=== PATIENT | male | born 1935 | race Caucasian/White ===

== ENCOUNTER 2016-03-12 10:05 | Inpatient (IN) | payer OTHER ==
[~2016-03-12] VITALS: Ht 177.8 cm; Wt 86.9 kg
[~2016-03-12 10:05] MED LIST: AMLODIPINE BESYL5 MG; AMLODIPINE BESYL5 MG PO; AMMONIUM LACTA140 GM TP; ANTIVERT12.5 MG PO; APRESOLINE20 MG/ML IV; APRESOLINE25 MG PO; APRESOLINE50 MG PO; ASPIR 8181 M1 PO; ASPIRIN81 M2 PO; ATENOLOL50 MG; ATENOLOL50 MG PO; ATORVASTATIN 80 MG T; CALCITRIOL0.25 MCG PO; CALCIUM ACETAT667 MG PO; CENTRUM SILVER1 EAC3 PO; CRESTOR40 MG PO; DIAZEPAM5 MG PO; FUROSEMIDE20 MG PO; GEMFIBROZIL600 MG PO; GLIPIZIDE ER2.5 MG PO; HYDRALAZINE HCL25 MG PO; HYDROCHLOROTHIA50 MG PO; LASIX40 MG PO; LATANOPROST2.5 ML; LATANOPROST2.5 ML BOTH EYES; LIPITOR80 MG PO; LISINOPRIL40 MG PO; LO-DOSE ASPIRIN81 M1 PO; LONITEN2.5 MG PO; LOPRESSOR50 MG PO; LOSARTAN POTASS50 MG PO; LOW DOSE ASPIRI81 M2 PO; MECLIZINE HCL25 MG; MINOXIDIL2.5 MG PO; NABI650T PO; NORVASC5 MG PO; ROCALTROL0.25 MCG PO; SPIRONOLACTONE25 MG; TAMIFLU75 MG PO; TENORMIN50 MG PO; TIMOLOL MALEATE15 M1; TIMOLOL MALEATE15 M1 BOTH EYES; TIMOPTIC-0100 DROP/1 BOTH EYES; TRADJENTA5 MG PO; VALIUM5 MG PO; VELTASSA16.8 GM PO; VITAMIN D1000 UNIT PO; VITAMIN D22000 UNIT PO; XALATAN2.5 ML BOTH EYES
[2016-03-12 10:47] LABS: HEMATOCRIT 30.5 % (38.0-50.0); MCH 29.5 PG (29.0-34.0); MCHC 33.1 G/DL (30.0-36.0); MCV 89.2 FL (86-99); MEAN PLAT.VOLUME 10.8 uM^3 (9.0-12.4); PLATELET COUNT 203 K/uL (156-360); RBC DIS.WIDTH-CV 15.8 % (11.8-14.6); RBC DIS.WIDTH-SD 50.1 % (39-53); RED BLOOD COUNT 3.42 M/uL (4.00-5.50); WHITE BLOOD COUNT 6.1 K/uL (4.1-10.2)
[2016-03-12 11:47] LABS: ANION GAP 14 MEQ/L (2-14); CHLORIDE 108 MEQ/L (99-109); POTASSIUM 5.6 MEQ/L (3.7-5.4); SAMPLE HEMOLYSIS CHECK 0; SAMPLE ICTERIC CHECK 0; SAMPLE LIPEMIA CHECK 0; SODIUM 142 MEQ/L (136-147)
[2016-03-12 11:53] LABS: GFR ESTIMATE (CALCULATED) 9 mL/min/; GLUCOSE 101 mg/dL (70-99); UREA NITROGEN (BUN) 77 mg/dL (9-23)
[2016-03-12] MEDS ORDERED: APRESOLINE25 MG PO ×2 (12:19)
[2016-03-12] MEDS ORDERED: LASIX20 MG PO (12:22)
[2016-03-12] MEDS ORDERED: KIONEX15 GM/60 M PO (12:25)
[2016-03-12] MEDS ORDERED: VITRON-C TABLE1 EACH PO (12:26)
[2016-03-12] MEDS ORDERED: TUMS500 MG PO (12:27)
[2016-03-12 12:32] LABS: ADD MIUA? YES; BILIRUBIN NEGATIVE; BLOOD TRACE; COLOR YELLOW ((YELLOW)); GLUCOSE (STRIP) 100; KETONES TRACE; LEUKOCYTES NEGATIVE; NITRITE NEGATIVE; PH, URINE 6.5 (5-8); PROTEIN (STRIP) >=300; SPECIFIC GRAVITY 1.013 (1.000-1.030); UROBILINOGEN 0.2 MG/DL (0.2-1.0)
[2016-03-12 12:49] LABS: BACTERIA RARE; CASTS NONE SEEN /LPF; CRYSTALS NONE SEEN; EPITHELIAL CELLS NONE SEEN; MUCUS NONE SEEN; RED BLOOD CELLS RARE /HPF (0-5); UCUL ADDED? NO; WHITE BLOOD CELLS RARE /HPF (0-5)
[2016-03-12 13:46] LABS: TROP-I INTERPRETATION NEGATIVE; TROPONIN-I 0.01 ng/mL (0.0-0.30)
[2016-03-12 18:28] VITALS: BP 150/70
[2016-03-12 20:00] VITALS: BP 150/69
[2016-03-13] VITALS (7 sets, daily range): BP systolic 126–177; BP diastolic 60–94
[2016-03-13 07:01] LABS: HEMATOCRIT 28.2 % (38.0-50.0); MCH 29.8 PG (29.0-34.0); MCV 90.4 FL (86-99); MEAN PLAT.VOLUME 10.6 uM^3 (9.0-12.4); PLATELET COUNT 206 K/uL (156-360); RBC DIS.WIDTH-SD 52.6 % (39-53); RED BLOOD COUNT 3.12 M/uL (4.00-5.50); WHITE BLOOD COUNT 5.4 K/uL (4.1-10.2)
[2016-03-13 07:21] LABS: ANION GAP 16 MEQ/L (2-14); CHLORIDE 110 MEQ/L (99-109); GFR ESTIMATE (CALCULATED) 9 mL/min/; GLUCOSE 118 mg/dL (70-99); POTASSIUM 5.5 MEQ/L (3.7-5.4); SAMPLE HEMOLYSIS CHECK 0; SAMPLE ICTERIC CHECK 0; SAMPLE LIPEMIA CHECK 0; SODIUM 145 MEQ/L (136-147); UREA NITROGEN (BUN) 76 mg/dL (9-23)
[2016-03-13 09:27] LABS: INTERNAL CONTROL VALID? YES
[2016-03-14 04:00] VITALS: BP 140/68
[2016-03-14 05:01] LABS: CHLORIDE 111 mEq/L (99-109); POTASSIUM 4.8 mEq/L (3.7-5.4); SODIUM 140 mEq/L (136-147)
[2016-03-14 05:03] LABS: GLUCOSE 111 mg/dL (70-99)
[2016-03-14 05:04] LABS: ANION GAP 10 MEQ/L (2-14)
[2016-03-14 05:07] LABS: GFR ESTIMATE (CALCULATED) 9 mL/min/
[2016-03-14 05:08] LABS: UREA NITROGEN (BUN) 78 mg/dL (9-23)
[2016-03-14 06:39] LABS: HEMATOCRIT 28.4 % (38.0-50.0); MCH 29.5 PG (29.0-34.0); MCHC 33.1 G/DL (30.0-36.0); MEAN PLAT.VOLUME 9.7 uM^3 (9.0-12.4); PLATELET COUNT 212 K/uL (156-360); RBC DIS.WIDTH-CV 15.8 % (11.8-14.6); RBC DIS.WIDTH-SD 51.3 % (39-53); RED BLOOD COUNT 3.19 M/uL (4.00-5.50); WHITE BLOOD COUNT 6.1 K/uL (4.1-10.2)
[2016-03-14 07:13] LABS: ANION GAP 15 MEQ/L (2-14); CHLORIDE 107 MEQ/L (99-109); POTASSIUM 4.7 MEQ/L (3.7-5.4); SAMPLE HEMOLYSIS CHECK 0; SAMPLE ICTERIC CHECK 0; SAMPLE LIPEMIA CHECK 0; SODIUM 141 MEQ/L (136-147); TOTAL BILIRUBIN 0.7 MG/DL (0.0-1.0)
[2016-03-14 07:19] LABS: ALKALINE PHOSPHATASE 80 IU/L (3-129); GFR ESTIMATE (CALCULATED) 10 mL/min/; GLUCOSE 127 mg/dL (70-99); UREA NITROGEN (BUN) 69 mg/dL (9-23)
[2016-03-14 07:29] VITALS: BP 138/86
[2016-03-14 11:22] VITALS: BP 119/65
[2016-03-14 15:03] LABS: INFLUENZA A VIRAL ANTIGEN NEGATIVE; INFLUENZA B VIRAL ANTIGEN NEGATIVE
[2016-03-14 16:00] VITALS: BP 134/69
[2016-03-14 18:52] LABS: ADD MIUA? YES; BILIRUBIN NEGATIVE; BLOOD TRACE; COLOR YELLOW ((YELLOW)); GLUCOSE (STRIP) 250; KETONES NEGATIVE; LEUKOCYTES NEGATIVE; NITRITE NEGATIVE; PH, URINE 6.5 (5-8); PROTEIN (STRIP) 300; SPECIFIC GRAVITY 1.014 (1.000-1.030); UROBILINOGEN 0.2 MG/DL (0.2-1.0)
[2016-03-14 19:06] LABS: BACTERIA NONE SEEN; CASTS NONE SEEN /LPF; CRYSTALS NONE SEEN; EPITHELIAL CELLS NONE SEEN; MUCUS NONE SEEN; RED BLOOD CELLS 0-5 /HPF (0-5); UCUL ADDED? NO; WHITE BLOOD CELLS 0-5 /HPF (0-5)
[2016-03-14 20:00] VITALS: BP 113/72
[2016-03-15] VITALS: BP 127/65
[2016-03-15 03:44] VITALS: BP 118/68
[2016-03-15 05:27] LABS: ANION GAP 12 MEQ/L (2-14); CHLORIDE 109 MEQ/L (99-109); GFR ESTIMATE (CALCULATED) 9 mL/min/; GLUCOSE 105 mg/dL (70-99); POTASSIUM 4.7 MEQ/L (3.7-5.4); SAMPLE HEMOLYSIS CHECK 0; SAMPLE ICTERIC CHECK 0; SAMPLE LIPEMIA CHECK 0; SODIUM 142 MEQ/L (136-147); UREA NITROGEN (BUN) 69 mg/dL (9-23)
[2016-03-15 07:57] VITALS: BP 108/42
[2016-03-15 08:00] VITALS: BP 122/78
[2016-03-15 09:31] LABS: INTERNAL CONTROL VALID? YES
[2016-03-15 11:26] VITALS: BP 135/57
[2016-03-15 16:09] VITALS: BP 114/54
[2016-03-16] VITALS (7 sets, daily range): BP systolic 110–215; BP diastolic 58–81
[2016-03-16 04:58] LABS: CHLORIDE 110 mEq/L (99-109); POTASSIUM 4.4 mEq/L (3.7-5.4); SODIUM 142 mEq/L (136-147)
[2016-03-16 05:00] LABS: GLUCOSE 105 mg/dL (70-99)
[2016-03-16 05:02] LABS: ANION GAP 12 MEQ/L (2-14)
[2016-03-16 05:04] LABS: GFR ESTIMATE (CALCULATED) 9 mL/min/
[2016-03-16 05:05] LABS: UREA NITROGEN (BUN) 64 mg/dL (9-23)
[2016-03-17 04:00] VITALS: BP 125/58; BP 140/78
[2016-03-17 07:00] LABS: HEMATOCRIT 27.9 % (38.0-50.0); MCH 28.3 PG (29.0-34.0); MCHC 31.5 G/DL (30.0-36.0); MCV 89.7 FL (86-99); MEAN PLAT.VOLUME 9.8 uM^3 (9.0-12.4); PLATELET COUNT 211 K/uL (156-360); RBC DIS.WIDTH-CV 15.8 % (11.8-14.6); RBC DIS.WIDTH-SD 51.6 % (39-53); RED BLOOD COUNT 3.11 M/uL (4.00-5.50); WHITE BLOOD COUNT 5.1 K/uL (4.1-10.2)
[2016-03-17 07:35] LABS: ANION GAP 13 MEQ/L (2-14); CHLORIDE 108 MEQ/L (99-109); GFR ESTIMATE (CALCULATED) 9 mL/min/; GLUCOSE 101 mg/dL (70-99); POTASSIUM 4.6 MEQ/L (3.7-5.4); SAMPLE HEMOLYSIS CHECK 0; SAMPLE ICTERIC CHECK 0; SAMPLE LIPEMIA CHECK 0; SODIUM 144 MEQ/L (136-147); UREA NITROGEN (BUN) 61 mg/dL (9-23)
[2016-03-17 12:16] VITALS: BP 148/67
[2016-03-17 15:50] VITALS: BP 148/68
[2016-03-17 20:46] VITALS: BP 210/88
[2016-03-17 23:27] VITALS: BP 188/70
[2016-03-18 04:39] VITALS: BP 179/88
[2016-03-18 07:09] LABS: HEMATOCRIT 26.3 % (38.0-50.0); MCHC 32.3 G/DL (30.0-36.0); MCV 89.8 FL (86-99); MEAN PLAT.VOLUME 9.9 uM^3 (9.0-12.4); PLATELET COUNT 225 K/uL (156-360); RBC DIS.WIDTH-CV 15.5 % (11.8-14.6); RBC DIS.WIDTH-SD 48.7 % (39-53); RED BLOOD COUNT 2.93 M/uL (4.00-5.50)
[2016-03-18 07:39] LABS: ANION GAP 12 MEQ/L (2-14); CHLORIDE 107 MEQ/L (99-109); GFR ESTIMATE (CALCULATED) 9 mL/min/; GLUCOSE 87 mg/dL (70-99); POTASSIUM 4.5 MEQ/L (3.7-5.4); SAMPLE HEMOLYSIS CHECK 0; SAMPLE ICTERIC CHECK 0; SAMPLE LIPEMIA CHECK 0; SODIUM 142 MEQ/L (136-147); UREA NITROGEN (BUN) 60 mg/dL (9-23)
[2016-03-18 08:37] VITALS: BP 122/51
[2016-03-18 12:07] VITALS: BP 142/56
[2016-03-18 15:00] VITALS: BP 142/66
[2016-03-18 20:47] VITALS: BP 140/72
[2016-03-18 23:36] VITALS: BP 130/70
[2016-03-19 04:46] VITALS: BP 120/43
[2016-03-19 07:16] LABS: HEMATOCRIT 26.1 % (38.0-50.0); MCHC 32.6 G/DL (30.0-36.0); MCV 89.1 FL (86-99); PLATELET COUNT 201 K/uL (156-360); RBC DIS.WIDTH-CV 15.6 % (11.8-14.6); RBC DIS.WIDTH-SD 50.5 % (39-53); RED BLOOD COUNT 2.93 M/uL (4.00-5.50); WHITE BLOOD COUNT 4.7 K/uL (4.1-10.2)
[2016-03-19 07:38] LABS: ANION GAP 12 MEQ/L (2-14); CHLORIDE 106 MEQ/L (99-109); GFR ESTIMATE (CALCULATED) 9 mL/min/; GLUCOSE 104 mg/dL (70-99); POTASSIUM 4.1 MEQ/L (3.7-5.4); SAMPLE HEMOLYSIS CHECK 0; SAMPLE ICTERIC CHECK 0; SAMPLE LIPEMIA CHECK 0; SODIUM 142 MEQ/L (136-147); UREA NITROGEN (BUN) 57 mg/dL (9-23)
[2016-03-19 07:54] VITALS: BP 123/50
[2016-03-19 11:02] VITALS: BP 121/68
[2016-03-19 15:14] VITALS: BP 130/59
[2016-03-19 19:33] VITALS: BP 129/58
[2016-03-20] VITALS: BP 128/58
[2016-03-20 04:12] VITALS: BP 128/56
[2016-03-20 06:44] LABS: ANION GAP 12 MEQ/L (2-14); CHLORIDE 105 MEQ/L (99-109); GFR ESTIMATE (CALCULATED) 9 mL/min/; GLUCOSE 108 mg/dL (70-99); SAMPLE HEMOLYSIS CHECK 0; SAMPLE ICTERIC CHECK 0; SAMPLE LIPEMIA CHECK 0; SODIUM 142 MEQ/L (136-147); UREA NITROGEN (BUN) 54 mg/dL (9-23)
[2016-03-20 08:32] VITALS: BP 147/52
[2016-03-20] MEDS ORDERED: CLONIDINE HCL0.1 MG PO (09:05)
[2016-03-20] MEDS ORDERED: AMOX TR-K CLV1 EAC3 PO (09:05)
== END 2016-03-20 10:20 | DRG 193 ==
LOC: EME 10:05 → 5SOUTH 12:45 → EDOF 12:45 → 5SOUTH 17:43
PROVIDERS: Emergency Medicine; Hospitalist; Internal Medicine; Internal Medicine Nephrology; Physician Assistant; Physician Assistant Medical
DX: J18.9 Pneumonia, unspecified organism (principal); J96.01 Acute respiratory failure with hypoxia; G93.40 Encephalopathy, unspecified; I16.0 Hypertensive urgency; I12.0 Hypertensive chronic kidney disease with stage 5 chronic kidney disease or end stage renal disease; N18.5 Chronic kidney disease, stage 5; E87.2 Acidosis; N25.81 Secondary hyperparathyroidism of renal origin; E11.21 Type 2 diabetes mellitus with diabetic nephropathy; E11.22 Type 2 diabetes mellitus with diabetic chronic kidney disease; E11.40 Type 2 diabetes mellitus with diabetic neuropathy, unspecified; R45.6 Violent behavior; E87.5 Hyperkalemia; E55.9 Vitamin D deficiency, unspecified; D63.1 Anemia in chronic kidney disease; D50.9 Iron deficiency anemia, unspecified; F03.90 Unspecified dementia, unspecified severity, without behavioral disturbance, psychotic disturbance, mood disturbance, and anxiety; E78.5 Hyperlipidemia, unspecified; M19.90 Unspecified osteoarthritis, unspecified site; H81.09 Meniere's disease, unspecified ear; Z87.891 Personal history of nicotine dependence; Z85.828 Personal history of other malignant neoplasm of skin; Z86.73 Personal history of transient ischemic attack (TIA), and cerebral infarction without residual deficits
CPT/HCPCS: 70450; 71010; 71020; 80048; 80053; 80069; 81003; 82140; 82948; 83605; 84484; 85027; 87040; 87070; 87205; 87449; 87502; 93005; 93971; 94010; 94640; 94640 76; 94799; 97530 GP; 99202; 99281; 99285; J0456; J0696; J0881; J1644; J1756; J7050

== ENCOUNTER 2016-04-23 19:30 | Emergency (ER) | payer OTHER ==
[~2016-04-23] VITALS: Ht 177.8 cm; Wt 83.2 kg
[~2016-04-23 19:30] MED LIST changes: +AMOX TR-K CLV1 EAC3 PO; +CLONIDINE HCL0.1 MG PO; +KIONEX15 GM/60 M PO; +LASIX20 MG PO; +TUMS500 MG PO; +VITRON-C TABLE1 EACH PO
[2016-04-23 20:42] LABS: HEMATOCRIT 32.9 % (38.0-50.0); MCH 28.7 PG (29.0-34.0); MCHC 33.7 G/DL (30.0-36.0); MEAN PLAT.VOLUME 9.8 uM^3 (9.0-12.4); RBC DIS.WIDTH-CV 13.9 % (11.8-14.6)
[2016-04-23 20:50] LABS: PLATELET COUNT 201 K/uL (156-360); RED BLOOD COUNT 3.87 M/uL (4.00-5.50); WHITE BLOOD COUNT 5.8 K/uL (4.1-10.2)
[2016-04-23 20:57] LABS: CHLORIDE 98 mEq/L (99-109); POTASSIUM 4.6 mEq/L (3.7-5.4); SODIUM 137 mEq/L (136-147)
[2016-04-23 21:00] LABS: ADD MIUA? YES; BILIRUBIN NEGATIVE; BLOOD NEGATIVE; COLOR YELLOW ((YELLOW)); GLUCOSE (STRIP) >=500; KETONES NEGATIVE; LEUKOCYTES NEGATIVE; NITRITE NEGATIVE; PROTEIN (STRIP) >=500; SPECIFIC GRAVITY 1.006 (1.000-1.030); UROBILINOGEN 0.2 MG/DL (0.2-1.0)
[2016-04-23 21:00] LABS: GLUCOSE 257 mg/dL (70-99)
[2016-04-23 21:01] LABS: ANION GAP 13 MEQ/L (2-14); TOTAL BILIRUBIN 0.9 mg/dL (0.0-1.0)
[2016-04-23 21:03] LABS: ALKALINE PHOSPHATASE 100 IU/L (3-129); GFR ESTIMATE (CALCULATED) 8 mL/min/
[2016-04-23 21:04] LABS: UREA NITROGEN (BUN) 63 mg/dL (9-23)
[2016-04-23 21:07] LABS: BACTERIA RARE /HPF; EPITHELIAL CELLS NONE SEEN /HPF; MUCUS NONE SEEN /LPF; RED BLOOD CELLS 0-5 /HPF (0-5); UCUL ADDED? NO; WHITE BLOOD CELLS 0-5 /HPF (0-5)
[2016-04-23 23:51] VITALS: BP 175/81
== END 2016-04-24 00:26 | disposition home or self-care (01) ==
LOC: EME 19:30
PROC: 0T9B70Z Drainage of Bladder with Drainage Device, Via Natural or Artificial Opening (ICD-10-PCS; principal; 2016-04-23)
DX: R33.9 Retention of urine, unspecified (principal); K59.00 Constipation, unspecified; E11.9 Type 2 diabetes mellitus without complications; E78.5 Hyperlipidemia, unspecified; I10 Essential (primary) hypertension; Z79.82 Long term (current) use of aspirin
CPT/HCPCS: 74022; 80053; 81003; 85027; 87340; 99281; 99285

== ENCOUNTER 2016-04-24 12:42 | Emergency (ER) | payer OTHER ==
[~2016-04-24] VITALS: Ht 177.8 cm; Wt 90.9 kg
[2016-04-24 14:37] VITALS: BP 153/59
== END 2016-04-24 14:59 | disposition home or self-care (01) ==
LOC: EME 12:42
DX: T83.031A Leakage of indwelling urethral catheter, initial encounter (principal); R33.9 Retention of urine, unspecified
CPT/HCPCS: 99281; 99284

== ENCOUNTER 2016-10-29 08:14 | Day surgery (SDC) | payer OTHER ==
[~2016-10-29] VITALS: Ht 177.8 cm; Wt 76.0 kg
[~2016-10-29 08:14] MED LIST changes: +BUSPAR5 MG PO; +CLONIDINE HCL0.2 MG PO; +DIOVAN320 MG PO; +INCRUSE ELLI62.5 MCG IH; +RENAL CAPS SOFTG1 MG PO
[2016-10-29 10:38] LABS: METH RESISTANT S AUREUS PCR NEGATIVE (NEGATIVE)
[2016-10-29 10:40] LABS: PROBE CHECK PASS; SPECIMEN PROCESSING CONTROL PASS
== END 2016-10-29 10:43 | disposition home or self-care (01) ==
LOC: CATH 08:14
PROVIDERS: Surgery
PROC: 057Y3DZ Dilation of Upper Vein with Intraluminal Device, Percutaneous Approach (ICD-10-PCS; principal; 2016-10-29)
DX: T82.858A Stenosis of other vascular prosthetic devices, implants and grafts, initial encounter (principal); N18.6 End stage renal disease; Z99.2 Dependence on renal dialysis; Z79.82 Long term (current) use of aspirin
CPT/HCPCS: 87641; C1725; C1769; C1894; J1644; J2250; J3010

== ENCOUNTER 2017-10-06 07:39 | Day surgery (SDC) | payer OTHER ==
[~2017-10-06] VITALS: Ht 177.8 cm; Wt 82.0 kg
[~2017-10-06 07:39] MED LIST changes: +GLIMEPIRIDE1 MG PO
== END 2017-10-06 10:00 | disposition home or self-care (01) ==
LOC: CATH 07:39
PROVIDERS: Surgery
DX: T82.858A Stenosis of other vascular prosthetic devices, implants and grafts, initial encounter (principal); I12.0 Hypertensive chronic kidney disease with stage 5 chronic kidney disease or end stage renal disease; E11.22 Type 2 diabetes mellitus with diabetic chronic kidney disease; N18.6 End stage renal disease; Z99.2 Dependence on renal dialysis; E78.5 Hyperlipidemia, unspecified; H81.09 Meniere's disease, unspecified ear; Z87.891 Personal history of nicotine dependence; Z82.49 Family history of ischemic heart disease and other diseases of the circulatory system; Z79.84 Long term (current) use of oral hypoglycemic drugs
CPT/HCPCS: 82948; 87641; C1725; C1769; C1894; J1644; J2250; J3010; S0020